=== PATIENT | male | born 1985 | race Caucasian/White ===

== ENCOUNTER 2019-03-26 04:12 | Emergency (ER) | payer SELFPAY ==
[2019-03-26 04:20] VITALS: BP 199/117
== END 2019-03-26 04:50 | disposition left against medical advice (07) ==
LOC: ER 04:12
DX: Z53.21 Procedure and treatment not carried out due to patient leaving prior to being seen by health care provider (principal); S61.419A Laceration without foreign body of unspecified hand, initial encounter; X58.XXXA Exposure to other specified factors, initial encounter